=== PATIENT | female | born 1995 | race Caucasian/White ===

== ENCOUNTER 2017-03-09 15:05 | Emergency (ER) | payer OTHER ==
[~2017-03-09] VITALS: Ht 160 cm; Wt 61.2 kg
[~2017-03-09 15:05] MED LIST: BIRTH CONTROL PILLS; ESTARYLLA1 EACH PO; FOLIC ACID1 MG PO; KEPPRA 500 MG500 M1 PO
[2017-03-09] MEDS ORDERED: KEPPRA 500 MG500 M1 PO (15:29)
[2017-03-09] MEDS ORDERED: ZOFRAN ODT4 MG SUBLING (15:35)
[2017-03-09 16:29] VITALS: BP 115/53
== END 2017-03-09 16:31 | disposition home or self-care (01) ==
LOC: M.ERS 15:05
DX: G40.909 Epilepsy, unspecified, not intractable, without status epilepticus (principal); F10.99 Alcohol use, unspecified with unspecified alcohol-induced disorder; F41.9 Anxiety disorder, unspecified; F32.9 Major depressive disorder, single episode, unspecified; Z88.8 Allergy status to other drugs, medicaments and biological substances